=== PATIENT | female | born 1980 | race Caucasian/White ===

== ENCOUNTER 2020-05-04 09:14 | Outpatient (NON) | payer BC, SELFPAY ==
[2020-05-04 23:31] LABS: SARS-CoV-2 RNA PCR Negative
== END 2020-05-04 09:15 ==
PROVIDERS: PCP Physician Assistant; Visit Provider Physician Assistant
DX: R43.2 Parageusia (principal); Z20.828 Contact with and (suspected) exposure to other viral communicable diseases
CPT/HCPCS: 87635; C9803; U0003

== ENCOUNTER → 2020-09-30 11:11 | Outpatient (REF) | payer BC, SELFPAY | LOC: ANHLAB 11:11 | PROVIDERS: PCP Physician Assistant; Visit Provider Nurse Practitioner | DX: L72.11 Pilar cyst (principal) | CPT/HCPCS: 88304 ==

== ENCOUNTER 2024-03-30 01:31 | Day surgery (SDC) | payer BC, SELFPAY ==
[2024-03-20 14:20] VITALS: BMI 20.9
[2024-03-30 07:24] VITALS: BP 120/78; PULSE 81; RESP 20; TEMP 36.1; O2SAT 99; BMI 21.5
[2024-03-30] MEDS: LACTATED RINGERS 1,000 ML 150 ML IV CONT (07:30)
--- NOTE | 2024-03-30 07:59 | P.PNAN_ITS ---
Anes - Initial Pre Proc Eval Procedure: Operation Date: 03/30/24 08:30 Proposed Procedures p Screening Colonoscopy - Ricci Linder MD Date/Time: 03/30/24 07:59 Surgeon: Ricci Linder MD Pre Op Diagnosis: screening neoplasm of colon Patient Data Age: 43 Gender: F Height: 1.68 m Weight: 60.5 kg Last Vital Signs Temp 36.1 C L 03/30/24 07:24 Pulse 81 03/30/24 07:24 Resp 20 03/30/24 07:24 BP 120/78 03/30/24 07:24 Pulse Ox 99 03/30/24 07:24 O2 Del Method Room Air 03/30/24 07:24 Allergies Allergy/AdvReac Type Severity Reaction Status Date / Time No Known Allergies Allergy Verified 03/30/24 07:21 Home Medications Medication Instructions Recorded Confirmed Type paroxetine HCl 10 mg tablet 10 mg PO DAILY 10/18/20 03/30/24 History venlafaxine 75 mg tablet 75 mg PO DAILY 10/18/20 03/30/24 History Patient hx anesthesia problems: none Family hx anesthesia problems: none Results Review: All pre-operative results and documents have been reviewed as part of the pre- operative evaluation. [facility] Past Medical History Medical History Depression Surgical History Surgical History History of appendectomy History of delivery Hx of tonsillectomy Family History Family History Father Heart disease Mother Hypertension Sibling Melanoma Social History Social History Years smoked: 4 Smoking status: Never smoker Alcohol intake: current Drinks per week: 15 Substance use: never Living arrangements: with family Occupation/Education: occupation Additional occupation/education comments: Homemaker Spiritual care concerns: No Anes - Eval Final PreProcedure Day of Procedure 03/30/24 07:59 Patient weight: normal Heart: regular rate and rhythm Lungs: clear to auscultation Airway: Mallampati scale class 1 Neurological: alert and oriented Last oral intake: >/= 8 hours ASA classification: II Emergent: no Anesthetic plan: proceed Anesthesia type and monitoring: general GIVS Results Review: All pre-operative results and documents have been reviewed as part of the pre- operative evaluation. Informed Consent: The patient's anesthetic plan and its attendant risks and benefits were discussed with the patient/family/POA. Questions were solicited and answers provided to the satisfaction of the patient/family/POA.
--- NOTE | 2024-03-30 08:04 | P.HP_ITS ---
History of Present Illness History of Present Illness Consent: Risks, benefits, and alternatives have been discussed and questions answered. Patient agrees to proceed with procedure. Chief complaint: screening neoplasm of colon Narrative: Emily Kirkpatrick is a 43 year old female here for first screening colonoscopy Review of Systems Review of Systems: All systems reviewed & are unremarkable except as noted in HPI and below PMFSH Past Medical History Medical History (Updated 03/30/24 @ 08:05 by Ricci Linder MD) Colon cancer screening Depression Surgical History Surgical History History of appendectomy History of delivery Hx of tonsillectomy Family History Family History Father Heart disease Mother Hypertension Sibling Melanoma Social History Social History (Reviewed 11/11/21 @ 15:13 by Cecilia Jarrell [facility]) Years smoked: 4 Smoking status: Never smoker Alcohol intake: current Drinks per week: 15 Substance use: never Living arrangements: with family Occupation/Education: occupation Additional occupation/education comments: Homemaker Spiritual care concerns: No Meds Home Medications and Allergies Home Medications Medication Instructions Recorded Confirmed Type paroxetine HCl 10 mg tablet 10 mg PO DAILY 10/18/20 03/30/24 History venlafaxine 75 mg tablet 75 mg PO DAILY 10/18/20 03/30/24 History Allergies Allergy/AdvReac Type Severity Reaction Status Date / Time No Known Allergies Allergy Verified 03/30/24 07:21 Vital Signs Vital Signs - 24 hr 03/30/24 07:24 Temperature 97.0 F L Pulse Rate 81 Respiratory Rate 20 Blood Pressure 120/78 Pulse Oximetry 99 Oxygen Delivery Room Air Exam Const: General: comfortable and no acute distress HENMT: Face/Nose/Sinus: Normal nares present Eyes: General: appearance normal, both eyes and all related structures Neck: Neck: no JVD Resp: Auscultation: clear to auscultation bilaterally Cardio: Rate: regular rate Rhythm: regular rhythm GI: Inspection: non-distended GI Palp: Yes Soft to palpation Skin: General skin exam: normal color Neuro: General: gait normal Speech: normal speech Extrem: General: normal to inspection Psych: Mental Status: mental status grossly normal Assessment and Plan Assessment and plan (1) Colon cancer screening: Code(s): Z12.11 - Encounter for screening for malignant neoplasm of colon Status: Acute Assessment and Plan: colonoscopy
[2024-03-30 08:21] VITALS: BP 125/78; PULSE 72; RESP 19; O2SAT 100
[2024-03-30 08:22] LABS: BEDSIDEPREGUCG Negative (Negative)
[2024-03-30 08:31] VITALS: BP 128/78; PULSE 76; RESP 20; O2SAT 100
[2024-03-30 08:41] VITALS: BP 128/77; PULSE 71; RESP 20; O2SAT 100
== END 2024-03-30 08:50 | disposition home or self-care (01) ==
PROVIDERS: PCP Physician Assistant; Referring Provider Physician Assistant; Visit Provider Internal Medicine Gastroenterology
PROC: 0DJD8ZZ Inspection of Lower Intestinal Tract, Via Natural or Artificial Opening Endoscopic (ICD-10-PCS; CPT 45378; principal; 2024-03-30 08:30)
DX: Z12.11 Encounter for screening for malignant neoplasm of colon (principal); K64.8 Other hemorrhoids; F32.A Depression, unspecified; Z98.890 Other specified postprocedural states; Z84.0 Family history of diseases of the skin and subcutaneous tissue; Z82.49 Family history of ischemic heart disease and other diseases of the circulatory system
CPT/HCPCS: 45378; J2704; J7120